=== PATIENT | male | born 1960 | race Caucasian/White ===

== ENCOUNTER 2020-06-22 15:47 | Inpatient (IN) | payer MEDICARE ==
[2020-06-22 19:00] LABS: #Eosinphils 0.1 10x3/uL (0.0-0.5); #Monocytes 0.6 10x3/uL (0.0-1.1); #Neutrophils 5.1 10x3/uL (1.5-8.4); %Basophils 0.4 % (0.0-2.0); %Eosinophils 1.3 % (0.0-6.0); %Lymphocytes 25.8 % (18.0-47.0); %Monocytes 7.4 % (0.0-10.0); %Neutrophils 64.8 % (40.0-75.0); Hemoglobin 9.5 g/dL (13.5-17.5); Mean Corpuscular HGB CONC 33.5 g/dL (32.0-36.0); Mean Corpuscular Hemoglobin 29.3 pg (27.0-33.0); Mean Corpuscular Volume 87.7 fl (81.2-95.1); Mean Platelet Volume 10.3 fl (7.4-10.4); Platelet Count 252 10x3/uL (150-450); RBC Distribution Width 14.4 % (11.5-14.5); Red Blood Cell (RBC) Count 3.24 10x6/uL (4.32-5.72); White Blood Cell (WBC) Count 7.8 10x3/uL (3.5-10.5)
[2020-06-22 19:18] LABS: ALT (SGPT) 13 U/L (8-55); AST (SGOT) 21 U/L (5-34); Albumin 3.6 g/dL (3.4-4.8); Alkaline Phosphatase 75 U/L (40-110); Anion Gap 15 mmol/L (10-20); BUN (Urea Nitrogen) 76 mg/dL (8.4-25.7); Bilirubin, Total 0.4 mg/dL (0.2-1.2); Calc. Creatinine Clearance 0 mL/min (70-130); Calcium 8.5 mg/dL (7.8-10.44); Carbon Dioxide 13 mmol/L (23-31); Chloride 117 mmol/L (98-107); Globulin 3.2 g/dL (2.4-3.5); Glucose 65 mg/dL (80-115); Potassium 5.2 mmol/L (3.5-5.1); Protein, Total 6.8 g/dL (5.8-8.1); Sodium 140 mmol/L (136-145)
[2020-06-22 20:17] LABS: INR-International Normal Ratio 1.1; PTT 24.3 sec (22.0-33.0); Prothrombin Time 11.3 sec (9.5-12.1)
[2020-06-22] MEDS ORDERED: Heparin 25,000 units/D5W 500 ML ONE (20:33)
[2020-06-22] MEDS ORDERED: Heparin 5,000 UNITS/ML VIAL ONE (20:33)
[2020-06-22] MEDS ORDERED: Albuterol Sulfate 2.5 mg/3 ml Neb NEB PRN (21:44)
[2020-06-22] MEDS ORDERED: Aspirin 325 MG TAB PO SCH (22:15)
[2020-06-22 22:57] LABS: Troponin I 3.715 ng/mL (< 0.028)
[2020-06-23] MEDS: Nitroglycerin 2% Ointment 1 INCH/1 GM Packet TOP SCH ×2 (00:07→06:23)
[2020-06-23 01:28] LABS: Critical Call Chem Troponin I RESULT DECREASING; Troponin I 3.079 ng/mL (< 0.028)
[2020-06-23 03:00] LABS: #Basophils 0.1 10x3/uL (0.0-0.2); #Eosinphils 0.2 10x3/uL (0.0-0.5); #Monocytes 0.6 10x3/uL (0.0-1.1); #Neutrophils 5.8 10x3/uL (1.5-8.4); %Basophils 0.6 % (0.0-2.0); %Lymphocytes 20.5 % (18.0-47.0); %Monocytes 6.7 % (0.0-10.0); %Neutrophils 69.7 % (40.0-75.0); Hemoglobin 9.9 g/dL (13.5-17.5); Mean Corpuscular HGB CONC 33.1 g/dL (32.0-36.0); Mean Corpuscular Hemoglobin 29.2 pg (27.0-33.0); Mean Corpuscular Volume 88.2 fl (81.2-95.1); Platelet Count 240 10x3/uL (150-450); RBC Distribution Width 14.7 % (11.5-14.5); Red Blood Cell (RBC) Count 3.39 10x6/uL (4.32-5.72); White Blood Cell (WBC) Count 8.3 10x3/uL (3.5-10.5)
[2020-06-23 03:14] LABS: Anion Gap 16 mmol/L (10-20); BUN (Urea Nitrogen) 73 mg/dL (8.4-25.7); Calc. Creatinine Clearance 19 mL/min (70-130); Carbon Dioxide 14 mmol/L (23-31); Chloride 113 mmol/L (98-107); Glucose 135 mg/dL (80-115); Potassium 4.9 mmol/L (3.5-5.1); Sodium 138 mmol/L (136-145)
[2020-06-23] MEDS: Sodium Chloride 0.9% 1,000 ML IV SCH ×3 (06:41→16:36)
[2020-06-23] MEDS ORDERED: Heparin 25,000 units/D5W 500 ML IVPB SCH (09:15)
[2020-06-23] MEDS ORDERED: Heparin 10,000 UNITS/ 10 ML VIAL SLOW IVP SCH (09:15)
[2020-06-23] MEDS: Clopidogrel Bisulfate 75 MG TAB PO SCH (09:28)
[2020-06-23] MEDS: Aspirin Chewable 81 MG TAB PO SCH (09:28)
[2020-06-23] MEDS: Carvedilol 12.5 MG TAB PO SCH ×2 (09:28→16:36)
[2020-06-23 09:59] LABS: SARS-CoV-2 PCR by NAA Not Detected (NotDetected)
[2020-06-23 10:11] LABS: Hemoglobin 8.9 g/dL (13.5-17.5); Platelet Count 221 10x3/uL (150-450)
[2020-06-23] MEDS ORDERED: Atorvastatin Calcium 40 MG TAB PO SCH (21:00)
[2020-06-23] MEDS ORDERED: Atorvastatin Calcium 10 MG TAB PO SCH (21:00)
[2020-06-23] MEDS ORDERED: FLU VACC QS2020-21(6MOS UP)/PF 60 MCG/0.5 ML SYRINGE IM ONE (21:00)
[2020-06-23] MEDS ORDERED: Prevnar 13-Val Conj/PF 0.5 ML SYRINGE IM ONE (21:00)
[2020-06-24] MEDS: Sodium Chloride 0.9% 1,000 ML IV SCH ×2 (05:32→15:06)
[2020-06-24] MEDS: Aspirin Chewable 81 MG TAB PO SCH (08:01)
[2020-06-24] MEDS: Clopidogrel Bisulfate 75 MG TAB PO SCH (08:01)
[2020-06-24] MEDS: Carvedilol 12.5 MG TAB PO SCH ×2 (08:01→15:57)
[2020-06-24 11:24] VITALS: BP 145/75; TEMP 98.6
== END 2020-06-24 18:11 | disposition home or self-care (01) | DRG 281 ==
LOC: CSHERS 15:47 → CSHTELE 21:58
PROVIDERS: ADMIT Family Medicine; ATTEND Internal Medicine
DX: I21.4 Non-ST elevation (NSTEMI) myocardial infarction (principal); N17.9 Acute kidney failure, unspecified; I50.22 Chronic systolic (congestive) heart failure; I13.0 Hypertensive heart and chronic kidney disease with heart failure and stage 1 through stage 4 chronic kidney disease, or unspecified chronic kidney disease; I25.10 Atherosclerotic heart disease of native coronary artery without angina pectoris; E11.21 Type 2 diabetes mellitus with diabetic nephropathy; J44.9 Chronic obstructive pulmonary disease, unspecified; Z79.4 Long term (current) use of insulin; I25.2 Old myocardial infarction; E78.5 Hyperlipidemia, unspecified; Z87.891 Personal history of nicotine dependence; Z86.73 Personal history of transient ischemic attack (TIA), and cerebral infarction without residual deficits; I11.0 Hypertensive heart disease with heart failure; E11.22 Type 2 diabetes mellitus with diabetic chronic kidney disease; N18.9 Chronic kidney disease, unspecified
CPT/HCPCS: 36415; 36416; 71045; 80048; 80053; 82553; 83735; 84484; 85025; 85610; 85730; 87635; 93005; 93010; 93306; 96365; J1644; J7050; U0003; U0005

== ENCOUNTER 2022-04-11 12:49 | Inpatient (IN) | payer MEDICARE ==
[2022-04-11 14:16] LABS: SARS-CoV-2 NAA Rapid Test Not Detected (NotDetected)
[2022-04-11 14:18] LABS: Hemoglobin 9.8 g/dL (13.5-17.5); Mean Corpuscular HGB CONC 32.7 g/dL (32.0-36.0); Mean Corpuscular Hemoglobin 28.9 pg (27.0-33.0); Mean Corpuscular Volume 88.5 fl (81.2-95.1); Mean Platelet Volume 10.2 fl (7.4-10.4); Platelet Count 287 10x3/uL (150-450); RBC Distribution Width 14.4 % (11.5-14.5); Red Blood Cell (RBC) Count 3.39 10x6/uL (4.32-5.72); White Blood Cell (WBC) Count 24.6 10x3/uL (3.5-10.5)
[2022-04-11] MEDS ORDERED: Ipratropium/Albuterol 3 ML NEB ONE (14:23)
[2022-04-11 14:27] LABS: ALT (SGPT) 9 U/L (8-55); AST (SGOT) 18 U/L (5-34); Albumin 3.4 g/dL (3.4-4.8); Alkaline Phosphatase 97 U/L (40-110); Anion Gap 19 mmol/L (10-20); BUN (Urea Nitrogen) 56 mg/dL (8.4-25.7); Bilirubin, Total 0.4 mg/dL (0.2-1.2); Calc. Creatinine Clearance 0 mL/min (70-130); Calcium 8.2 mg/dL (7.8-10.44); Carbon Dioxide 14 mmol/L (23-31); Chloride 107 mmol/L (98-107); Estimated GFR 25; Globulin 3.6 g/dL (2.4-3.5); Glucose 187 mg/dL (80-115); Lipase 8 U/L (8-78); Potassium 4.9 mmol/L (3.5-5.1); Sodium 135 mmol/L (136-145)
[2022-04-11 14:28] LABS: Bilirubin Neg (Negative); Blood, Urine 10 (Negative); Clarity Clear (Clear); Glucose, Urine (Dipstick) Normal (Negative); Ketone, Urine Negative (Negative); Leukocyte 100 (Negative); Nitrite Negative (Negative); Protein, Urine (Dipstick) 30 mg/dl (Neg-Trace); Specific Gravity, Urine 1.015 (1.005-1.030); Urobilinogen Normal mg/dL (Less than 2)
[2022-04-11 14:35] LABS: MDiff Complete? YES
[2022-04-11 14:37] LABS: Band 12 % (5-11); Lymphocytes 6 % (21-51); Monocytes 5 % (0-10); Neutrophil 77 % (42-75)
[2022-04-11 14:38] LABS: Platelet Morphology Comment Appears Adequate; RBC Morphology Normal
[2022-04-11 14:42] LABS: Bacteria/HPF 1+ HPF (None Seen); RBC/HPF 0-3 HPF (0-3)
[2022-04-11 14:50] LABS: CKMB 2.8 ng/mL (0-6.6)
[2022-04-11] MEDS ORDERED: Senokot S 8.6-50 MG TAB PO PRN (15:17)
[2022-04-11] MEDS ORDERED: Ondansetron ODT 4 MG TAB PO PRN (15:17)
[2022-04-11] MEDS ORDERED: Acetaminophen 325 MG TAB PO PRN (15:17)
[2022-04-11] MEDS ORDERED: Ondansetron PF 4 MG/2 ML Vial IVP PRN (15:17)
[2022-04-11] MEDS ORDERED: Dextrose 5% in Water 1,000 ML IV PRN (15:20)
[2022-04-11] MEDS ORDERED: Dextrose 50% Abboject 50 ML SYRINGE SLOW IVP PRN (15:20)
[2022-04-11] MEDS ORDERED: methylPREDNISolone Sod Succ/PF 125 MG/2 ML VIAL ONE (15:22)
[2022-04-11] MEDS ORDERED: cefTRIAXone\\ROCEPHIN 1 GM VIAL ONE (15:23)
[2022-04-11] MEDS ORDERED: Azithromycin 500 MG VIAL ONE (15:23)
[2022-04-11] MEDS ORDERED: Furosemide 40 MG/4 ML VIAL ONE (16:21)
[2022-04-11] MEDS ORDERED: Carvedilol 12.5 MG TAB ONE (16:57)
[2022-04-11] MEDS ORDERED: Furosemide 40 MG/4 ML VIAL SLOW IVP SCH (17:00)
[2022-04-11] MEDS: Carvedilol 12.5 MG TAB PO SCH (17:00)
[2022-04-11] MEDS ORDERED: NOREPINEPHRINE 8 MG/250 ML-D5W 250 ML ONE (20:13)
[2022-04-11] MEDS ORDERED: Atorvastatin Calcium 40 MG TAB ONE (22:36)
[2022-04-11] MEDS ORDERED: Dicyclomine 20 MG TAB ONE (22:36)
[2022-04-11] MEDS: Dicyclomine 20 MG TAB PO SCH (22:48)
[2022-04-11] MEDS: Atorvastatin Calcium 40 MG TAB PO SCH (22:48)
[2022-04-12] MEDS ORDERED: FLU VACC QS2022-23(6MOS UP)/PF 60 MCG/0.5 ML SYRINGE IM ONE (02:00)
[2022-04-12 02:02] LABS: Troponin I 0.061 ng/mL (< 0.028)
[2022-04-12] MEDS: HumaLOG 300 UNITS/3 ML VIAL SC PRN ×6 (02:21→21:27)
[2022-04-12] MEDS ORDERED: VANCOMYCIN 1.25 GM/250 ML BAG 1.25 GM in Premix Bag 1 BAG IVPB SCH (02:30)
[2022-04-12] MEDS ORDERED: Vancomycin 1.5 GRAM/300 ML BAG 1.5 GM in Premix Bag 1 BAG IVPB SCH (02:30)
[2022-04-12] MEDS: Cefepime 1 GM in Sodium Chloride 0.9% 100 ML IVPB SCH ×2 (02:41→15:15)
[2022-04-12 04:36] LABS: Hemoglobin 7.3 g/dL (13.5-17.5); Mean Corpuscular HGB CONC 32.4 g/dL (32.0-36.0); Mean Corpuscular Hemoglobin 28.7 pg (27.0-33.0); Mean Corpuscular Volume 88.6 fl (81.2-95.1); Mean Platelet Volume 10.3 fl (7.4-10.4); Platelet Count 274 10x3/uL (150-450); RBC Distribution Width 14.7 % (11.5-14.5); Red Blood Cell (RBC) Count 2.54 10x6/uL (4.32-5.72); White Blood Cell (WBC) Count 18.7 10x3/uL (3.5-10.5)
[2022-04-12 04:38] LABS: MDiff Complete? YES
[2022-04-12 04:44] LABS: Anion Gap 15 mmol/L (10-20); BUN (Urea Nitrogen) 62 mg/dL (8.4-25.7); Calc. Creatinine Clearance 31 mL/min (70-130); Calcium 8.4 mg/dL (7.8-10.44); Carbon Dioxide 19 mmol/L (23-31); Chloride 107 mmol/L (98-107); Estimated GFR 25; Glucose 316 mg/dL (80-115); Potassium 4.4 mmol/L (3.5-5.1); Sodium 137 mmol/L (136-145)
[2022-04-12 04:48] LABS: Troponin I 0.049 ng/mL (< 0.028)
[2022-04-12] MEDS ORDERED: NOREPINEPHRINE 8 MG/250 ML-D5W 250 ML IVPB SCH (05:00)
[2022-04-12 05:13] LABS: Band 18 % (5-11); Lymphocytes 4 % (21-51); Monocytes 1 % (0-10); Neutrophil 77 % (42-75)
[2022-04-12 05:14] LABS: Platelet Morphology Comment Appears Adequate; RBC Morphology Normal
[2022-04-12 06:31] LABS: Legionella Urinary Ag Negative (Negative)
[2022-04-12] MEDS ORDERED: Sodium Chloride 0.9% 250 ML 250 ML ONE (07:58)
[2022-04-12] MEDS: Clopidogrel Bisulfate 75 MG TAB PO SCH (08:04)
[2022-04-12] MEDS: Carvedilol 12.5 MG TAB PO SCH ×2 (08:04→17:23)
[2022-04-12] MEDS: Azithromycin 500 MG in Sodium Chloride 0.9% 250 ML 250 ML IVPB SCH (08:04)
[2022-04-12] MEDS ORDERED: cefTRIAXone\\ROCEPHIN 2 GM in Sodium Chloride 0.9% 100 ML IVPB SCH (09:00)
[2022-04-12] MEDS ORDERED: Lantus 1000 UNITS/10 ML VIAL SC SCH (09:00)
[2022-04-12] MEDS: Dicyclomine 20 MG TAB PO SCH ×3 (09:06→21:27)
[2022-04-12] MEDS: Albumin 25% 25 GM/100 ML BOT IVPB SCH ×2 (11:43→17:51)
[2022-04-12] MEDS ORDERED: Sodium Chloride 0.9% 100 ML ONE (15:06)
[2022-04-12 15:24] LABS: Strep pneumo Urine Ag NEGATIVE (NEGATIVE)
[2022-04-12] MEDS: Atorvastatin Calcium 40 MG TAB PO SCH (21:27)
[2022-04-13] MEDS: Cefepime 1 GM in Sodium Chloride 0.9% 100 ML IVPB SCH (02:25)
[2022-04-13] MEDS: Albumin 25% 25 GM/100 ML BOT IVPB SCH ×4 (03:38→14:08)
[2022-04-13 05:19] LABS: Vancomycin, Random 12.8 ug/mL (See Comment)
[2022-04-13 05:20] LABS: Anion Gap 19 mmol/L (10-20); BUN (Urea Nitrogen) 81 mg/dL (8.4-25.7); Calc. Creatinine Clearance 31 mL/min (70-130); Calcium 8.4 mg/dL (7.8-10.44); Carbon Dioxide 16 mmol/L (23-31); Chloride 109 mmol/L (98-107); Estimated GFR 25; Glucose 281 mg/dL (80-115); Hemoglobin 8.4 g/dL (13.5-17.5); Mean Corpuscular HGB CONC 32.6 g/dL (32.0-36.0); Mean Corpuscular Hemoglobin 28.7 pg (27.0-33.0); Mean Corpuscular Volume 88.1 fl (81.2-95.1); Mean Platelet Volume 10.8 fl (7.4-10.4); Platelet Count 274 10x3/uL (150-450); Potassium 4.8 mmol/L (3.5-5.1); RBC Distribution Width 14.7 % (11.5-14.5); Red Blood Cell (RBC) Count 2.93 10x6/uL (4.32-5.72); Sodium 139 mmol/L (136-145); White Blood Cell (WBC) Count 17.5 10x3/uL (3.5-10.5)
[2022-04-13] MEDS ORDERED: Vancomycin HCl 750 MG in Sodium Chloride 0.9% 250 ML 250 ML IVPB SCH (05:30)
[2022-04-13] MEDS: HumaLOG 300 UNITS/3 ML VIAL SC PRN ×4 (06:18→20:40)
[2022-04-13 06:37] LABS: MDiff Complete? YES
[2022-04-13 06:43] LABS: Band 13 % (5-11); Lymphocytes 8 % (21-51); Monocytes 3 % (0-10); Neutrophil 76 % (42-75); Nucleated RBC 1 % (0)
[2022-04-13 06:44] LABS: Platelet Morphology Comment Appears Adequate
[2022-04-13 06:45] LABS: Anisocytosis SLIGHT = 6-15 cells (100X) (0-5/hpf); Burr Cells SLIGHT = 2-5 cells (100X) (0-1/hpf)
[2022-04-13] MEDS: Azithromycin 500 MG in Sodium Chloride 0.9% 250 ML 250 ML IVPB SCH (08:16)
[2022-04-13] MEDS: Carvedilol 12.5 MG TAB PO SCH ×2 (08:17→16:17)
[2022-04-13] MEDS: Clopidogrel Bisulfate 75 MG TAB PO SCH (08:17)
[2022-04-13] MEDS: Lantus 1000 UNITS/10 ML VIAL SC SCH ×2 (08:18→20:39)
[2022-04-13] MEDS: Alogliptin 6.25 MG TAB PO SCH (08:41)
[2022-04-13] MEDS: Dicyclomine 20 MG TAB PO SCH ×3 (09:49→20:38)
[2022-04-13] MEDS: Ipratropium/Albuterol 3 ML NEB NEB SCH ×3 (11:45→19:37)
[2022-04-13] MEDS ORDERED: methylPREDNISolone Sod Succ/PF 125 MG/2 ML VIAL IVP SCH (14:00)
[2022-04-13] MEDS ORDERED: Furosemide 40 MG/4 ML VIAL SLOW IVP SCH (15:15)
[2022-04-13] MEDS: Atorvastatin Calcium 40 MG TAB PO SCH (20:38)
[2022-04-13] MEDS ORDERED: Furosemide 100 MG/10 ML VIAL SLOW IVP SCH (23:00)
[2022-04-14] MEDS: Albumin 25% 25 GM/100 ML BOT IVPB SCH ×3 (02:21→06:31)
[2022-04-14] MEDS ORDERED: VANCOMYCIN 1.25 GM/250 ML BAG IVPB SCH (02:30)
[2022-04-14] MEDS: Cefepime 1 GM in Sodium Chloride 0.9% 100 ML IVPB SCH (05:39)
[2022-04-14 06:14] LABS: Anion Gap 17 mmol/L (10-20); BUN (Urea Nitrogen) 78 mg/dL (8.4-25.7); CRP (Inflammatory) 7.72 mg/dL (= or < 0.5); Calc. Creatinine Clearance 39 mL/min (70-130); Calcium 9.6 mg/dL (7.8-10.44); Carbon Dioxide 20 mmol/L (23-31); Chloride 107 mmol/L (98-107); Estimated GFR 32; Glucose 289 mg/dL (80-115); Potassium 4.3 mmol/L (3.5-5.1); Sodium 140 mmol/L (136-145)
[2022-04-14 06:18] LABS: #Monocytes 0.3 10x3/uL (0.0-1.1); #Neutrophils 11.2 10x3/uL (1.5-8.4); %Basophils 0.2 % (0.0-2.0); %Eosinophils 0.2 % (0.0-6.0); %Lymphocytes 5.9 % (18.0-47.0); %Monocytes 2.5 % (0.0-10.0); %Neutrophils 89.8 % (40.0-75.0); Hemoglobin 9.3 g/dL (13.5-17.5); Mean Corpuscular HGB CONC 32.7 g/dL (32.0-36.0); Mean Corpuscular Hemoglobin 28.5 pg (27.0-33.0); Mean Corpuscular Volume 87.1 fl (81.2-95.1); Mean Platelet Volume 10.8 fl (7.4-10.4); Platelet Count 254 10x3/uL (150-450); RBC Distribution Width 14.8 % (11.5-14.5); Red Blood Cell (RBC) Count 3.26 10x6/uL (4.32-5.72); White Blood Cell (WBC) Count 12.5 10x3/uL (3.5-10.5)
[2022-04-14] MEDS: HumaLOG 300 UNITS/3 ML VIAL SC PRN ×3 (06:40→18:26)
[2022-04-14] MEDS: Ipratropium/Albuterol 3 ML NEB NEB SCH ×4 (07:10→19:43)
[2022-04-14] MEDS: Alogliptin 6.25 MG TAB PO SCH (08:48)
[2022-04-14] MEDS: Carvedilol 12.5 MG TAB PO SCH ×2 (08:49→18:23)
[2022-04-14] MEDS: Clopidogrel Bisulfate 75 MG TAB PO SCH (08:49)
[2022-04-14] MEDS: Sodium Bicarbonate Tab 325 MG TAB PO SCH ×3 (08:49→20:43)
[2022-04-14] MEDS: Azithromycin 500 MG in Sodium Chloride 0.9% 250 ML 250 ML IVPB SCH (08:49)
[2022-04-14] MEDS: Lantus 1000 UNITS/10 ML VIAL SC SCH ×2 (08:50→20:44)
[2022-04-14] MEDS: Dicyclomine 20 MG TAB PO SCH ×3 (12:28→20:43)
[2022-04-14] MEDS: Atorvastatin Calcium 40 MG TAB PO SCH (20:43)
[2022-04-15] MEDS: Cefepime 1 GM in Sodium Chloride 0.9% 100 ML IVPB SCH ×2 (05:27→17:23)
[2022-04-15] MEDS: Ipratropium/Albuterol 3 ML NEB NEB SCH ×4 (06:55→19:53)
[2022-04-15] MEDS: Azithromycin 500 MG in Sodium Chloride 0.9% 250 ML 250 ML IVPB SCH (08:30)
[2022-04-15] MEDS: Alogliptin 6.25 MG TAB PO SCH (08:31)
[2022-04-15] MEDS: Clopidogrel Bisulfate 75 MG TAB PO SCH (08:31)
[2022-04-15] MEDS: Lantus 1000 UNITS/10 ML VIAL SC SCH (08:32)
[2022-04-15] MEDS: Dicyclomine 20 MG TAB PO SCH ×2 (08:32→15:40)
[2022-04-15] MEDS: Sodium Bicarbonate Tab 325 MG TAB PO SCH ×3 (08:45→21:38)
[2022-04-15 08:50] LABS: #Monocytes 0.9 10x3/uL (0.0-1.1); #Neutrophils 10.3 10x3/uL (1.5-8.4); %Basophils 0.3 % (0.0-2.0); %Eosinophils 0.3 % (0.0-6.0); %Lymphocytes 13.2 % (18.0-47.0); %Monocytes 6.6 % (0.0-10.0); %Neutrophils 77.6 % (40.0-75.0); Hemoglobin 8.8 g/dL (13.5-17.5); Mean Corpuscular HGB CONC 33.2 g/dL (32.0-36.0); Mean Corpuscular Hemoglobin 29.2 pg (27.0-33.0); Mean Platelet Volume 10.7 fl (7.4-10.4); Platelet Count 261 10x3/uL (150-450); RBC Distribution Width 14.8 % (11.5-14.5); Red Blood Cell (RBC) Count 3.01 10x6/uL (4.32-5.72); White Blood Cell (WBC) Count 13.2 10x3/uL (3.5-10.5)
[2022-04-15 09:12] LABS: Anion Gap 18 mmol/L (10-20); BUN (Urea Nitrogen) 76 mg/dL (8.4-25.7); Calc. Creatinine Clearance 45 mL/min (70-130); Carbon Dioxide 21 mmol/L (23-31); Chloride 111 mmol/L (98-107); Estimated GFR 39; Glucose 125 mg/dL (80-115); Potassium 4.1 mmol/L (3.5-5.1); Sodium 146 mmol/L (136-145)
[2022-04-15] MEDS: Carvedilol 12.5 MG TAB PO SCH (10:15)
[2022-04-15] MEDS: Sodium Chloride 0.45% 1,000 ML IV SCH ×2 (10:43→21:42)
[2022-04-15] MEDS: HumaLOG 300 UNITS/3 ML VIAL SC PRN (13:19)
[2022-04-15] MEDS: Atorvastatin Calcium 40 MG TAB PO SCH (21:38)
[2022-04-16] MEDS: Dicyclomine 20 MG TAB PO SCH ×4 (03:20→22:16)
[2022-04-16] MEDS: Lantus 1000 UNITS/10 ML VIAL SC SCH ×2 (03:22→10:40)
[2022-04-16] MEDS: Cefepime 1 GM in Sodium Chloride 0.9% 100 ML IVPB SCH ×2 (05:14→18:27)
[2022-04-16 05:59] LABS: #Eosinphils 0.1 10x3/uL (0.0-0.5); #Monocytes 0.8 10x3/uL (0.0-1.1); #Neutrophils 11.2 10x3/uL (1.5-8.4); %Basophils 0.2 % (0.0-2.0); %Lymphocytes 11.6 % (18.0-47.0); %Monocytes 5.6 % (0.0-10.0); %Neutrophils 79.2 % (40.0-75.0); Hemoglobin 8.7 g/dL (13.5-17.5); Mean Corpuscular Hemoglobin 28.8 pg (27.0-33.0); Mean Corpuscular Volume 87.4 fl (81.2-95.1); Mean Platelet Volume 10.5 fl (7.4-10.4); Platelet Count 254 10x3/uL (150-450); RBC Distribution Width 14.6 % (11.5-14.5); Red Blood Cell (RBC) Count 3.02 10x6/uL (4.32-5.72); White Blood Cell (WBC) Count 14.1 10x3/uL (3.5-10.5)
[2022-04-16 06:09] LABS: Anion Gap 16 mmol/L (10-20); BUN (Urea Nitrogen) 55 mg/dL (8.4-25.7); Calc. Creatinine Clearance 55 mL/min (70-130); Calcium 8.8 mg/dL (7.8-10.44); Carbon Dioxide 23 mmol/L (23-31); Chloride 108 mmol/L (98-107); Estimated GFR 50; Glucose 202 mg/dL (80-115); Potassium 3.8 mmol/L (3.5-5.1); Sodium 143 mmol/L (136-145)
[2022-04-16] MEDS ORDERED: Furosemide 40 MG/4 ML VIAL SLOW IVP SCH (06:30)
[2022-04-16] MEDS: Ipratropium/Albuterol 3 ML NEB NEB SCH ×4 (07:45→19:41)
[2022-04-16] MEDS: Mometasone/Formoterol 60 PUFF AER INH SCH ×2 (10:35→19:44)
[2022-04-16] MEDS: Azithromycin 500 MG in Sodium Chloride 0.9% 250 ML 250 ML IVPB SCH (10:39)
[2022-04-16] MEDS: Clopidogrel Bisulfate 75 MG TAB PO SCH (10:41)
[2022-04-16] MEDS: Alogliptin 6.25 MG TAB PO SCH (10:43)
[2022-04-16] MEDS: Sodium Bicarbonate Tab 325 MG TAB PO SCH ×3 (10:44→22:08)
[2022-04-16] MEDS: Sodium Chloride 0.45% 1,000 ML IV SCH (13:07)
[2022-04-16 17:30] LABS: Actual Bicarbonate (HCO3a) 28.4 mEq/L (22-28); Base Excess (BEa) 4.3 mEq/L (-2.0 to +3.0); CO2 Tension 40.8 mmHg (35.0-45.0); Calcium, Ionized (arterial) 1.11 mmol/L (1.12-1.30); Carboxyhemoglobin (COHb) 0.6 gm% (0.0-3.0); Hemoglobin (Hb) 9.3 g/dL (14.0-18.0); Potassium - ABG Lab 3.6 mmol/L (3.70-5.30); Puncture Site RRA; pH, Arterial 7.46 (7.35-7.45)
[2022-04-16] MEDS: Atorvastatin Calcium 40 MG TAB PO SCH (22:08)
[2022-04-17] MEDS: Lantus 1000 UNITS/10 ML VIAL SC SCH ×2 (01:24→10:13)
[2022-04-17] MEDS ORDERED: Nitroglycerin 2% Ointment 1 INCH/1 GM Packet TOP SCH (02:00)
[2022-04-17 05:53] LABS: #Eosinphils 0.2 10x3/uL (0.0-0.5); #Monocytes 0.8 10x3/uL (0.0-1.1); #Neutrophils 11.1 10x3/uL (1.5-8.4); %Basophils 0.3 % (0.0-2.0); %Eosinophils 1.5 % (0.0-6.0); %Lymphocytes 11.1 % (18.0-47.0); %Monocytes 5.7 % (0.0-10.0); %Neutrophils 78.9 % (40.0-75.0); Hemoglobin 8.7 g/dL (13.5-17.5); Mean Corpuscular HGB CONC 33.1 g/dL (32.0-36.0); Mean Corpuscular Hemoglobin 28.1 pg (27.0-33.0); Mean Corpuscular Volume 84.8 fl (81.2-95.1); Mean Platelet Volume 10.8 fl (7.4-10.4); Platelet Count 257 10x3/uL (150-450); RBC Distribution Width 14.1 % (11.5-14.5); White Blood Cell (WBC) Count 14.1 10x3/uL (3.5-10.5)
[2022-04-17 06:40] LABS: Anion Gap 18 mmol/L (10-20); BUN (Urea Nitrogen) 40 mg/dL (8.4-25.7); Calc. Creatinine Clearance 64 mL/min (70-130); Carbon Dioxide 25 mmol/L (23-31); Chloride 105 mmol/L (98-107); Estimated GFR 60; Glucose 132 mg/dL (80-115); Potassium 3.6 mmol/L (3.5-5.1); Sodium 144 mmol/L (136-145)
[2022-04-17] MEDS: Ipratropium/Albuterol 3 ML NEB NEB SCH ×3 (07:20→15:00)
[2022-04-17] MEDS: Mometasone/Formoterol 60 PUFF AER INH SCH ×2 (07:28→20:39)
[2022-04-17] MEDS: Azithromycin 500 MG in Sodium Chloride 0.9% 250 ML 250 ML IVPB SCH (10:00)
[2022-04-17] MEDS: Clopidogrel Bisulfate 75 MG TAB PO SCH (10:00)
[2022-04-17] MEDS: Dicyclomine 20 MG TAB PO SCH ×3 (10:00→22:03)
[2022-04-17] MEDS: Furosemide 20 MG TAB PO SCH (10:00)
[2022-04-17] MEDS: Alogliptin 6.25 MG TAB PO SCH (10:00)
[2022-04-17] MEDS: Sodium Bicarbonate Tab 325 MG TAB PO SCH ×3 (10:00→22:03)
[2022-04-17] MEDS: Cefepime 1 GM in Sodium Chloride 0.9% 100 ML IVPB SCH ×2 (10:16→16:43)
[2022-04-17 12:59] LABS: Bilirubin Neg (Negative); Blood, Urine 150 (Negative); CAUTI Indications for Culture Alt mental st,lethar; Clarity Clear (Clear); Glucose, Urine (Dipstick) Normal (Negative); Ketone, Urine Negative (Negative); Leukocyte 100 (Negative); Nitrite Negative (Negative); Protein, Urine (Dipstick) 100 mg/dl (Neg-Trace); Urobilinogen Normal mg/dL (Less than 2)
[2022-04-17 13:19] LABS: Urine Culture Reflex No No
[2022-04-17 13:21] LABS: Bacteria/HPF None Seen HPF (None Seen); Squamous Epithelial 0-3 HPF (0-3); WBC/HPF 0-3 HPF (0-3)
[2022-04-17] MEDS ORDERED: Ipratropium/Albuterol 3 ML NEB NEB PRN (17:36)
[2022-04-17] MEDS ORDERED: levETIRAcetam in NS 1,000 MG in Premix Bag 1 BAG IVPB SCH (21:00)
[2022-04-17] MEDS: Atorvastatin Calcium 40 MG TAB PO SCH (22:03)
[2022-04-18] MEDS: levETIRAcetam 500 MG/5 ML VIAL SLOW IVP SCH ×3 (00:28→21:54)
[2022-04-18] MEDS: HumaLOG 300 UNITS/3 ML VIAL SC PRN (00:28)
[2022-04-18] MEDS: Lantus 1000 UNITS/10 ML VIAL SC SCH ×2 (05:27→11:00)
[2022-04-18] MEDS: Cefepime 1 GM in Sodium Chloride 0.9% 100 ML IVPB SCH ×2 (05:42→17:52)
[2022-04-18 05:43] LABS: #Eosinphils 0.3 10x3/uL (0.0-0.5); #Monocytes 0.8 10x3/uL (0.0-1.1); #Neutrophils 7.7 10x3/uL (1.5-8.4); %Basophils 0.1 % (0.0-2.0); %Eosinophils 2.6 % (0.0-6.0); %Lymphocytes 13.4 % (18.0-47.0); %Monocytes 7.3 % (0.0-10.0); %Neutrophils 74.7 % (40.0-75.0); Hemoglobin 8.6 g/dL (13.5-17.5); Mean Corpuscular HGB CONC 33.2 g/dL (32.0-36.0); Mean Corpuscular Hemoglobin 28.2 pg (27.0-33.0); Mean Corpuscular Volume 84.9 fl (81.2-95.1); Mean Platelet Volume 10.7 fl (7.4-10.4); Platelet Count 249 10x3/uL (150-450); RBC Distribution Width 14.2 % (11.5-14.5); Red Blood Cell (RBC) Count 3.05 10x6/uL (4.32-5.72); White Blood Cell (WBC) Count 10.3 10x3/uL (3.5-10.5)
[2022-04-18 05:56] LABS: Anion Gap 15 mmol/L (10-20); BUN (Urea Nitrogen) 34 mg/dL (8.4-25.7); Calc. Creatinine Clearance 68 mL/min (70-130); Calcium 8.7 mg/dL (7.8-10.44); Carbon Dioxide 27 mmol/L (23-31); Chloride 103 mmol/L (98-107); Estimated GFR 65; Glucose 154 mg/dL (80-115); Potassium 3.7 mmol/L (3.5-5.1); Sodium 141 mmol/L (136-145)
[2022-04-18] MEDS: Mometasone/Formoterol 60 PUFF AER INH SCH ×2 (07:40→20:49)
[2022-04-18] MEDS: Azithromycin 500 MG in Sodium Chloride 0.9% 250 ML 250 ML IVPB SCH (11:09)
[2022-04-18] MEDS: Alogliptin 6.25 MG TAB PO SCH ×2 (11:28→12:08)
[2022-04-18] MEDS: Clopidogrel Bisulfate 75 MG TAB PO SCH ×2 (11:28→12:10)
[2022-04-18] MEDS: Sodium Bicarbonate Tab 325 MG TAB PO SCH ×4 (11:28→21:55)
[2022-04-18] MEDS: Dicyclomine 20 MG TAB PO SCH ×5 (11:28→21:55)
[2022-04-18] MEDS: Furosemide 20 MG TAB PO SCH ×2 (11:28→12:06)
[2022-04-18] MEDS: Atorvastatin Calcium 40 MG TAB PO SCH (21:55)
[2022-04-19] MEDS: Lantus 1000 UNITS/10 ML VIAL SC SCH ×3 (02:01→21:06)
[2022-04-19 05:17] LABS: ALT (SGPT) 9 U/L (8-55); AST (SGOT) 11 U/L (5-34); Albumin 3.7 g/dL (3.4-4.8); Alkaline Phosphatase 87 U/L (40-110); Anion Gap 13 mmol/L (10-20); BUN (Urea Nitrogen) 31 mg/dL (8.4-25.7); Bilirubin, Total 0.9 mg/dL (0.2-1.2); Calc. Creatinine Clearance 61 mL/min (70-130); Calcium 8.8 mg/dL (7.8-10.44); Carbon Dioxide 28 mmol/L (23-31); Chloride 101 mmol/L (98-107); Estimated GFR 56; Globulin 3.6 g/dL (2.4-3.5); Glucose 248 mg/dL (80-115); Potassium 3.6 mmol/L (3.5-5.1); Protein, Total 7.3 g/dL (5.8-8.1); Sodium 138 mmol/L (136-145)
[2022-04-19] MEDS: Cefepime 1 GM in Sodium Chloride 0.9% 100 ML IVPB SCH ×2 (07:13→17:03)
[2022-04-19] MEDS: Mometasone/Formoterol 60 PUFF AER INH SCH ×2 (07:35→20:34)
[2022-04-19] MEDS ORDERED: Labetalol HCl 100 MG/20 ML VIAL SLOW IVP PRN (08:33)
[2022-04-19] MEDS ORDERED: Atorvastatin Calcium 40 MG TAB PO SCH (09:00)
[2022-04-19] MEDS ORDERED: Clopidogrel Bisulfate 75 MG TAB PO SCH (09:00)
[2022-04-19] MEDS: Azithromycin 500 MG in Sodium Chloride 0.9% 250 ML 250 ML IVPB SCH (09:09)
[2022-04-19] MEDS: levETIRAcetam 500 MG/5 ML VIAL SLOW IVP SCH ×2 (09:13→21:01)
[2022-04-19] MEDS: Clopidogrel Bisulfate 75 MG TAB PO SCH (09:16)
[2022-04-19] MEDS: Carvedilol 12.5 MG TAB PO SCH ×2 (09:16→22:37)
[2022-04-19] MEDS: Alogliptin 6.25 MG TAB PO SCH (09:16)
[2022-04-19] MEDS: Dicyclomine 20 MG TAB PO SCH ×3 (09:16→22:37)
[2022-04-19] MEDS: Sodium Bicarbonate Tab 325 MG TAB PO SCH ×3 (09:16→22:37)
[2022-04-19] MEDS: Furosemide 20 MG TAB PO SCH (09:16)
[2022-04-19] MEDS: HumaLOG 300 UNITS/3 ML VIAL SC PRN (12:43)
[2022-04-19] MEDS: Atorvastatin Calcium 40 MG TAB PO SCH (22:37)
[2022-04-20 05:30] LABS: ALT (SGPT) 9 U/L (8-55); AST (SGOT) 10 U/L (5-34); Albumin 3.5 g/dL (3.4-4.8); Alkaline Phosphatase 78 U/L (40-110); Anion Gap 13 mmol/L (10-20); BUN (Urea Nitrogen) 27 mg/dL (8.4-25.7); Bilirubin, Total 0.8 mg/dL (0.2-1.2); Calc. Creatinine Clearance 61 mL/min (70-130); Calcium 8.8 mg/dL (7.8-10.44); Carbon Dioxide 28 mmol/L (23-31); Chloride 101 mmol/L (98-107); Estimated GFR 56; Globulin 3.7 g/dL (2.4-3.5); Glucose 240 mg/dL (80-115); Potassium 3.6 mmol/L (3.5-5.1); Protein, Total 7.2 g/dL (5.8-8.1); Sodium 138 mmol/L (136-145)
[2022-04-20] MEDS: Cefepime 1 GM in Sodium Chloride 0.9% 100 ML IVPB SCH (06:35)
[2022-04-20] MEDS: HumaLOG 300 UNITS/3 ML VIAL SC PRN ×3 (06:52→16:52)
[2022-04-20] MEDS: Mometasone/Formoterol 60 PUFF AER INH SCH ×2 (07:05→20:43)
[2022-04-20] MEDS: Sodium Bicarbonate Tab 325 MG TAB PO SCH ×3 (10:11→22:54)
[2022-04-20] MEDS: Clopidogrel Bisulfate 75 MG TAB PO SCH (10:12)
[2022-04-20] MEDS: Alogliptin 6.25 MG TAB PO SCH (10:13)
[2022-04-20] MEDS: Furosemide 20 MG TAB PO SCH (10:13)
[2022-04-20] MEDS: Carvedilol 12.5 MG TAB PO SCH ×2 (10:15→22:15)
[2022-04-20] MEDS: levETIRAcetam 500 MG/5 ML VIAL SLOW IVP SCH ×2 (10:16→22:14)
[2022-04-20] MEDS: Azithromycin 500 MG in Sodium Chloride 0.9% 250 ML 250 ML IVPB SCH (10:33)
[2022-04-20] MEDS: Dicyclomine 20 MG TAB PO SCH ×3 (11:00→22:13)
[2022-04-20] MEDS: Lantus 1000 UNITS/10 ML VIAL SC SCH ×2 (11:00→22:13)
[2022-04-20] MEDS: Guaifenesin DM 100-10/5 ML UDCUP PO PRN ×2 (16:52→22:15)
[2022-04-20] MEDS: Atorvastatin Calcium 40 MG TAB PO SCH (22:14)
[2022-04-21 04:17] LABS: Anion Gap 11 mmol/L (10-20); BUN (Urea Nitrogen) 32 mg/dL (8.4-25.7); Calc. Creatinine Clearance 58 mL/min (70-130); Calcium 8.6 mg/dL (7.8-10.44); Carbon Dioxide 28 mmol/L (23-31); Chloride 101 mmol/L (98-107); Estimated GFR 53; Glucose 146 mg/dL (80-115); Potassium 3.5 mmol/L (3.5-5.1); Sodium 136 mmol/L (136-145)
[2022-04-21] MEDS: Mometasone/Formoterol 60 PUFF AER INH SCH ×2 (06:45→18:56)
[2022-04-21] MEDS: Alogliptin 6.25 MG TAB PO SCH (10:23)
[2022-04-21] MEDS: Furosemide 20 MG TAB PO SCH (10:23)
[2022-04-21] MEDS: Sodium Bicarbonate Tab 325 MG TAB PO SCH ×3 (10:23→21:57)
[2022-04-21] MEDS: Carvedilol 12.5 MG TAB PO SCH ×2 (10:24→21:57)
[2022-04-21] MEDS: Clopidogrel Bisulfate 75 MG TAB PO SCH (10:24)
[2022-04-21] MEDS: Dicyclomine 20 MG TAB PO SCH ×3 (10:24→21:56)
[2022-04-21] MEDS: levETIRAcetam 500 MG/5 ML VIAL SLOW IVP SCH ×2 (10:24→21:57)
[2022-04-21] MEDS: Lantus 1000 UNITS/10 ML VIAL SC SCH ×2 (10:28→21:56)
[2022-04-21] MEDS ORDERED: Lactated Ringer's 500 ML IV SCH (14:30)
[2022-04-21] MEDS: HumaLOG 300 UNITS/3 ML VIAL SC PRN (17:50)
[2022-04-21] MEDS: Atorvastatin Calcium 40 MG TAB PO SCH (21:57)
[2022-04-22 03:43] LABS: #Eosinphils 0.2 10x3/uL (0.0-0.5); #Monocytes 0.8 10x3/uL (0.0-1.1); #Neutrophils 8.3 10x3/uL (1.5-8.4); %Basophils 0.2 % (0.0-2.0); %Lymphocytes 12.5 % (18.0-47.0); %Monocytes 7.1 % (0.0-10.0); %Neutrophils 77.5 % (40.0-75.0); Hemoglobin 7.5 g/dL (13.5-17.5); Mean Corpuscular HGB CONC 32.8 g/dL (32.0-36.0); Mean Corpuscular Hemoglobin 29.6 pg (27.0-33.0); Mean Corpuscular Volume 90.5 fl (81.2-95.1); Mean Platelet Volume 11.4 fl (7.4-10.4); Platelet Count 237 10x3/uL (150-450); RBC Distribution Width 14.2 % (11.5-14.5); Red Blood Cell (RBC) Count 2.53 10x6/uL (4.32-5.72); White Blood Cell (WBC) Count 10.7 10x3/uL (3.5-10.5)
[2022-04-22 03:54] LABS: Anion Gap 11 mmol/L (10-20); BUN (Urea Nitrogen) 29 mg/dL (8.4-25.7); Calc. Creatinine Clearance 61 mL/min (70-130); Calcium 8.7 mg/dL (7.8-10.44); Carbon Dioxide 28 mmol/L (23-31); Chloride 102 mmol/L (98-107); Estimated GFR 56; Glucose 129 mg/dL (80-115); Potassium 3.4 mmol/L (3.5-5.1); Sodium 138 mmol/L (136-145)
[2022-04-22] MEDS: Mometasone/Formoterol 60 PUFF AER INH SCH ×2 (07:58→20:39)
[2022-04-22] MEDS: Furosemide 20 MG TAB PO SCH (09:13)
[2022-04-22] MEDS: Sodium Bicarbonate Tab 325 MG TAB PO SCH ×3 (09:13→22:07)
[2022-04-22] MEDS: Carvedilol 12.5 MG TAB PO SCH ×2 (09:13→22:08)
[2022-04-22] MEDS: Alogliptin 6.25 MG TAB PO SCH (09:13)
[2022-04-22] MEDS: Clopidogrel Bisulfate 75 MG TAB PO SCH (09:14)
[2022-04-22] MEDS: Lantus 1000 UNITS/10 ML VIAL SC SCH ×2 (09:14→22:08)
[2022-04-22] MEDS: Dicyclomine 20 MG TAB PO SCH ×3 (09:14→22:07)
[2022-04-22] MEDS: levETIRAcetam 500 MG/5 ML VIAL SLOW IVP SCH ×2 (09:14→22:07)
[2022-04-22] MEDS: Atorvastatin Calcium 40 MG TAB PO SCH (22:07)
[2022-04-23 04:07] LABS: #Eosinphils 0.2 10x3/uL (0.0-0.5); #Monocytes 0.9 10x3/uL (0.0-1.1); #Neutrophils 8.3 10x3/uL (1.5-8.4); %Basophils 0.3 % (0.0-2.0); %Eosinophils 1.5 % (0.0-6.0); %Monocytes 8.2 % (0.0-10.0); %Neutrophils 76.6 % (40.0-75.0); Hemoglobin 7.4 g/dL (13.5-17.5); Mean Corpuscular Hemoglobin 29.5 pg (27.0-33.0); Mean Corpuscular Volume 89.2 fl (81.2-95.1); Mean Platelet Volume 10.8 fl (7.4-10.4); Platelet Count 282 10x3/uL (150-450); Red Blood Cell (RBC) Count 2.51 10x6/uL (4.32-5.72); White Blood Cell (WBC) Count 10.8 10x3/uL (3.5-10.5)
[2022-04-23 04:22] LABS: Anion Gap 12 mmol/L (10-20); BUN (Urea Nitrogen) 21 mg/dL (8.4-25.7); Calc. Creatinine Clearance 67 mL/min (70-130); Calcium 8.9 mg/dL (7.8-10.44); Carbon Dioxide 30 mmol/L (23-31); Chloride 101 mmol/L (98-107); Estimated GFR 62; Glucose 66 mg/dL (80-115); Potassium 3.1 mmol/L (3.5-5.1); Sodium 140 mmol/L (136-145)
[2022-04-23] MEDS: Mometasone/Formoterol 60 PUFF AER INH SCH ×2 (06:45→19:47)
[2022-04-23] MEDS: Dicyclomine 20 MG TAB PO SCH ×3 (08:25→21:23)
[2022-04-23] MEDS: Carvedilol 12.5 MG TAB PO SCH ×2 (08:25→21:06)
[2022-04-23] MEDS: Furosemide 20 MG TAB PO SCH (08:25)
[2022-04-23] MEDS: Clopidogrel Bisulfate 75 MG TAB PO SCH (08:25)
[2022-04-23] MEDS: Alogliptin 6.25 MG TAB PO SCH (08:25)
[2022-04-23] MEDS: Sodium Bicarbonate Tab 325 MG TAB PO SCH ×3 (08:25→21:06)
[2022-04-23] MEDS: levETIRAcetam 500 MG/5 ML VIAL SLOW IVP SCH ×2 (08:27→21:18)
[2022-04-23] MEDS: Lantus 1000 UNITS/10 ML VIAL SC SCH (08:28)
[2022-04-23] MEDS ORDERED: Electrolyte Replacement Protocol 1 EACH FS SCH (08:45)
[2022-04-23] MEDS ORDERED: Potassium Chloride 20 MEQ TAB PO SCH (10:30)
[2022-04-23] MEDS ORDERED: HumaLOG 300 UNITS/3 ML VIAL SC PRN ×2 (18:16)
[2022-04-23] MEDS: Folic Acid 1 MG TAB PO SCH (21:06)
[2022-04-23] MEDS: Thiamine 100 MG TAB PO SCH (21:06)
[2022-04-23] MEDS: Atorvastatin Calcium 40 MG TAB PO SCH (21:06)
[2022-04-23] MEDS: Cyanocobalamin (Vitamin B-12) 1,000 MCG TAB PO SCH (21:06)
[2022-04-23] MEDS: Cholecalciferol 1,000 UNITS (25 MCG) TAB PO SCH (21:06)
[2022-04-24 05:27] LABS: #Eosinphils 0.1 10x3/uL (0.0-0.5); #Monocytes 1.1 10x3/uL (0.0-1.1); %Basophils 0.1 % (0.0-2.0); %Eosinophils 0.7 % (0.0-6.0); %Lymphocytes 10.1 % (18.0-47.0); %Neutrophils 80.6 % (40.0-75.0); Hemoglobin 7.4 g/dL (13.5-17.5); Mean Corpuscular HGB CONC 33.5 g/dL (32.0-36.0); Mean Corpuscular Hemoglobin 29.5 pg (27.0-33.0); Mean Platelet Volume 10.8 fl (7.4-10.4); Platelet Count 291 10x3/uL (150-450); RBC Distribution Width 14.1 % (11.5-14.5); Red Blood Cell (RBC) Count 2.51 10x6/uL (4.32-5.72); White Blood Cell (WBC) Count 13.7 10x3/uL (3.5-10.5)
[2022-04-24 05:32] LABS: Anion Gap 13 mmol/L (10-20); BUN (Urea Nitrogen) 22 mg/dL (8.4-25.7); Calc. Creatinine Clearance 57 mL/min (70-130); Calcium 9.1 mg/dL (7.8-10.44); Carbon Dioxide 28 mmol/L (23-31); Chloride 99 mmol/L (98-107); Estimated GFR 52; Glucose 239 mg/dL (80-115); Sodium 136 mmol/L (136-145)
[2022-04-24] MEDS: Mometasone/Formoterol 60 PUFF AER INH SCH ×2 (07:24→18:55)
[2022-04-24] MEDS: Furosemide 20 MG TAB PO SCH (08:17)
[2022-04-24] MEDS: Dicyclomine 20 MG TAB PO SCH (08:17)
[2022-04-24] MEDS: Sodium Bicarbonate Tab 325 MG TAB PO SCH ×3 (08:17→20:58)
[2022-04-24] MEDS: Carvedilol 12.5 MG TAB PO SCH ×2 (08:17→20:47)
[2022-04-24] MEDS: Alogliptin 6.25 MG TAB PO SCH (08:17)
[2022-04-24] MEDS: Multivit, Therapeutic 1 TAB PO SCH (08:17)
[2022-04-24] MEDS: Lantus 1000 UNITS/10 ML VIAL SC SCH (08:17)
[2022-04-24] MEDS: levETIRAcetam 500 MG/5 ML VIAL SLOW IVP SCH ×2 (08:18→20:55)
[2022-04-24] MEDS ORDERED: HumaLOG 300 UNITS/3 ML VIAL SC PRN (09:17)
[2022-04-24] MEDS ORDERED: Dicyclomine 10 MG CAP PO PRN (09:20)
[2022-04-24] MEDS: Atorvastatin Calcium 40 MG TAB PO SCH (20:47)
[2022-04-24] MEDS: Cholecalciferol 1,000 UNITS (25 MCG) TAB PO SCH (20:47)
[2022-04-24] MEDS: Thiamine 100 MG TAB PO SCH (20:47)
[2022-04-24] MEDS: Cyanocobalamin (Vitamin B-12) 1,000 MCG TAB PO SCH (20:47)
[2022-04-24] MEDS: Folic Acid 1 MG TAB PO SCH (20:48)
[2022-04-25 03:28] VITALS: BMI 27.9
[2022-04-25 03:40] LABS: #Eosinphils 0.2 10x3/uL (0.0-0.5); #Monocytes 0.7 10x3/uL (0.0-1.1); #Neutrophils 7.3 10x3/uL (1.5-8.4); %Basophils 0.4 % (0.0-2.0); %Eosinophils 1.7 % (0.0-6.0); %Lymphocytes 13.9 % (18.0-47.0); %Monocytes 7.5 % (0.0-10.0); %Neutrophils 76.2 % (40.0-75.0); Hemoglobin 7.7 g/dL (13.5-17.5); Mean Corpuscular Hemoglobin 28.9 pg (27.0-33.0); Mean Corpuscular Volume 87.6 fl (81.2-95.1); Mean Platelet Volume 10.8 fl (7.4-10.4); Platelet Count 311 10x3/uL (150-450); Red Blood Cell (RBC) Count 2.66 10x6/uL (4.32-5.72); White Blood Cell (WBC) Count 9.5 10x3/uL (3.5-10.5)
[2022-04-25 03:49] LABS: Anion Gap 14 mmol/L (10-20); BUN (Urea Nitrogen) 25 mg/dL (8.4-25.7); Calc. Creatinine Clearance 58 mL/min (70-130); Calcium 8.8 mg/dL (7.8-10.44); Carbon Dioxide 30 mmol/L (23-31); Chloride 101 mmol/L (98-107); Estimated GFR 52; Glucose 169 mg/dL (80-115); Potassium 3.9 mmol/L (3.5-5.1); Sodium 141 mmol/L (136-145)
[2022-04-25] MEDS: Mometasone/Formoterol 60 PUFF AER INH SCH ×2 (06:55→19:56)
[2022-04-25] MEDS: levETIRAcetam 500 MG/5 ML VIAL SLOW IVP SCH ×2 (10:02→22:07)
[2022-04-25] MEDS: Lantus 1000 UNITS/10 ML VIAL SC SCH (10:02)
[2022-04-25] MEDS: Carvedilol 12.5 MG TAB PO SCH ×2 (10:03→22:06)
[2022-04-25] MEDS: Clopidogrel Bisulfate 75 MG TAB PO SCH (10:03)
[2022-04-25] MEDS: Sodium Bicarbonate Tab 325 MG TAB PO SCH ×3 (10:03→22:06)
[2022-04-25] MEDS: Alogliptin 6.25 MG TAB PO SCH (10:03)
[2022-04-25] MEDS: Furosemide 20 MG TAB PO SCH (10:03)
[2022-04-25] MEDS: Multivit, Therapeutic 1 TAB PO SCH (10:03)
[2022-04-25] MEDS: Folic Acid 1 MG TAB PO SCH (22:06)
[2022-04-25] MEDS: Thiamine 100 MG TAB PO SCH (22:06)
[2022-04-25] MEDS: Cholecalciferol 1,000 UNITS (25 MCG) TAB PO SCH (22:06)
[2022-04-25] MEDS: Cyanocobalamin (Vitamin B-12) 1,000 MCG TAB PO SCH (22:06)
[2022-04-25] MEDS: Atorvastatin Calcium 40 MG TAB PO SCH (22:06)
[2022-04-26] MEDS: Mometasone/Formoterol 60 PUFF AER INH SCH (07:05)
[2022-04-26] MEDS: Sodium Bicarbonate Tab 325 MG TAB PO SCH ×2 (09:31→10:18)
[2022-04-26] MEDS: Furosemide 20 MG TAB PO SCH (09:31)
[2022-04-26] MEDS: Clopidogrel Bisulfate 75 MG TAB PO SCH (09:31)
[2022-04-26] MEDS: Carvedilol 12.5 MG TAB PO SCH ×2 (09:31→10:17)
[2022-04-26] MEDS: levETIRAcetam 500 MG/5 ML VIAL SLOW IVP SCH (09:32)
[2022-04-26] MEDS: Lantus 1000 UNITS/10 ML VIAL SC SCH (09:32)
[2022-04-26] MEDS: Multivit, Therapeutic 1 TAB PO SCH (09:32)
[2022-04-26] MEDS: Alogliptin 6.25 MG TAB PO SCH (09:49)
[2022-04-26] MEDS: Cholecalciferol 1,000 UNITS (25 MCG) TAB PO SCH (10:17)
[2022-04-26] MEDS: Atorvastatin Calcium 40 MG TAB PO SCH (10:17)
[2022-04-26] MEDS: Thiamine 100 MG TAB PO SCH (10:18)
[2022-04-26] MEDS: Cyanocobalamin (Vitamin B-12) 1,000 MCG TAB PO SCH (10:18)
[2022-04-26] MEDS: Folic Acid 1 MG TAB PO SCH (10:18)
[2022-04-26 12:48] VITALS: BP 148/63; TEMP 98.1
== END 2022-04-26 13:30 | disposition short-term general hospital (02) | DRG 871 ==
LOC: CSHERS 12:49 → CSHERHOLD 16:17 → CSHIMCU 04-12 00:58 → CSHTELE 04-13 03:15
PROVIDERS: ADMIT Hospitalist; ATTEND Hospitalist
PROC: 3E03329 Introduction of Other Anti-infective into Peripheral Vein, Percutaneous Approach (ICD-10-PCS; 2022-04-11)
PROC: 3E033XZ Introduction of Vasopressor into Peripheral Vein, Percutaneous Approach (ICD-10-PCS; 2022-04-11)
PROC: 02H633Z Insertion of Infusion Device into Right Atrium, Percutaneous Approach (ICD-10-PCS; 2022-04-11)
PROC: B548ZZA Ultrasonography of Superior Vena Cava, Guidance (ICD-10-PCS; 2022-04-11)
PROC: 30233J1 Transfusion of Nonautologous Serum Albumin into Peripheral Vein, Percutaneous Approach (ICD-10-PCS; 2022-04-13)
PROC: 4A10X4Z Monitoring of Central Nervous Electrical Activity, External Approach (ICD-10-PCS; principal; 2022-04-19)
PROC: 4A10X4Z Monitoring of Central Nervous Electrical Activity, External Approach (ICD-10-PCS; 2022-04-24)
DX: A41.9 Sepsis, unspecified organism (principal); G93.41 Metabolic encephalopathy; J18.9 Pneumonia, unspecified organism; J96.21 Acute and chronic respiratory failure with hypoxia; I50.43 Acute on chronic combined systolic (congestive) and diastolic (congestive) heart failure; N18.4 Chronic kidney disease, stage 4 (severe); N17.9 Acute kidney failure, unspecified; J44.0 Chronic obstructive pulmonary disease with (acute) lower respiratory infection; J44.1 Chronic obstructive pulmonary disease with (acute) exacerbation; I25.10 Atherosclerotic heart disease of native coronary artery without angina pectoris; Z20.822 Contact with and (suspected) exposure to COVID-19; E11.22 Type 2 diabetes mellitus with diabetic chronic kidney disease; D63.1 Anemia in chronic kidney disease; E11.649 Type 2 diabetes mellitus with hypoglycemia without coma; R56.9 Unspecified convulsions; E87.6 Hypokalemia; I27.20 Pulmonary hypertension, unspecified; Z79.82 Long term (current) use of aspirin; Z79.899 Other long term (current) drug therapy; Z99.81 Dependence on supplemental oxygen; I25.2 Old myocardial infarction; Z90.49 Acquired absence of other specified parts of digestive tract
CPT/HCPCS: 36415; 36416; 36556; 36600; 70450; 70551; 71045; 76770; 80048; 80053; 80202; 81001; 81003; 81015; 82553; 82805; 83605; 83690; 83735; 83880; 84145; 84484; 85025; 85046; 86140; 86850; 86900; 86901; 87040; 87070; 87077; 87186; 87205; 87449; 87811; 87899; 93005; 93010; 93306; 94640; 94664; 94760; 95816; 95819; 95957; 96374; 96375; J0456; J0692; J0696; J1650; J1815; J1940; J1953; J2405; J2930; J3370; J3490; J7050; J7120; J7620; J7999; P9047; Q0162; U0003; U0005